=== PATIENT | female | born 1985 | race Caucasian/White ===

== ENCOUNTER → 2016-05-16 | Outpatient (CLI) | payer MEDICAID ==
--- NOTE | 2016-05-16 10:33 | US ---
Ultrasound of the Abdomen Limited History: R 74.8 abnormal liver enzymes. Comparison: MRI abdomen May 2015 Findings: Gallbladder: No shadowing calculi, wall thickening, or pericholecystic fluid. Common bile duct is 3 m m in diameter which is normal. Liver: Diffusely increased in echogenicity without definite focal lesions and measures 17 cm in lengt h. Renal: Right kidney measures 11 x 5 x 5 cm without hydronephrosis. Pancreas: Homogeneous without peripancreatic fluid. Aorta: Visualized upper abdominal aorta demonstrates no aneurysm. Impression: 1. No cholelithiasis or biliary ductal dilation. 2. Mild Hepatic steatosis and mild hepatomegaly without focal hepatic lesions or ascites.
== END ==
LOC: FIMAGING 09:27
PROVIDERS: ATTEND Internal Medicine
DX: R74.8 Abnormal levels of other serum enzymes (principal); R16.0 Hepatomegaly, not elsewhere classified

== ENCOUNTER → 2016-05-31 | Outpatient (CLI) | payer MEDICAID ==
[~2016-05-31] MED LIST: BUPIVACAINE 0.25% 30 ML SDV ONE; LIDOCAINE 1% 30 ML SDV ONE; MIDAZOLAM 2 MG/2 ML VIAL ONE; NA BICARBONATE 50 MEQ/50 ML VIAL ONE; NS 1,000 ML IV SCH; fentaNYL 100 MCG/2 ML INJ ONE
[2016-05-31 09:29] LABS: HEMATOCRIT 42.1 % (38.0-47.0)
[2016-05-31 09:38] LABS: APTT 27.7 SEC (23.0-38.0); INR 0.93 (0.83-1.16); PROTIME(PATIENT) 12.4 SEC (12.0-15.0)
--- NOTE | 2016-05-31 14:52 | US ---
Ultrasound-Guided Liver Biopsy Indication: Abnormal LFT's Crosscutting Measure #226: Current tobacco user: No Witnessed Consent: Witnessed informed consent was obtained after the risks, benefits, and alternative s of ultrasound-guided liver biopsy were explained to the patient and all questions were answered. Intravenous Conscious Sedation: Versed 3.5 mg and fentanyl 175 mcg were administered intravenously fo r conscious sedation under monitoring by the nurse and me. Start time: 10:24 a.m. End Time: 10:51 a. m. Procedure: A preprocedural ultrasound was performed and the skin entrance site was marked. The skin was prepped with Betadine and alcohol solution. The skin and deep soft tissues were numbed with 1% li docaine with bicarbonate. Utilizing real-time ultrasound guidance, a 19-gauge coaxial needle was adva nced into the right lobe of the liver. A 20-gauge biopsy device was advanced coaxially into the right lobe of liver and 3 biopsy specimens were obtained. The needle was removed. Manual hemostasis was ac hieved. Postprocedure imaging demonstrated no hematoma. Patient tolerated the procedure well without immediate complications. Patient was sent to Recovery for monitoring. Postprocedure discharge instruc tions were given. Specimens were sent to Pathology for analysis. Impression: Successful ultrasound-guided liver biopsy. Specimen: Submitted to the lab.
== END ==
LOC: FIMAGING 08:56
PROVIDERS: ATTEND Internal Medicine
PROC: 0FB03ZX Excision of Liver, Percutaneous Approach, Diagnostic (ICD-10-PCS; principal; 2016-05-31 10:50)
DX: R94.5 Abnormal results of liver function studies (principal); K73.9 Chronic hepatitis, unspecified
CPT/HCPCS: J2250; J3010

== ENCOUNTER 2016-12-13 11:38 | Emergency (ER) | payer MEDICAID ==
[2016-12-13 11:50] VITALS: RESP 18; TEMP 98.8
[2016-12-13] MEDS ORDERED: NS 1,000 ML IV ONE (13:56)
--- NOTE | 2016-12-13 13:59 | EDPHY ---
H & P Stated Complaint: decreased sxs in pregnanct. pt cramping no bleeding Time Seen by Provider: 12/13/16 13:50 HPI/ROS: CHIEF COMPLAINT: Concern for miscarriage HISTORY OF PRESENT ILLNESS: The patient is a 31-year-old female with 1 miscarriage at 5 weeks who comes to the emergency department with cramping and a concern for miscarriage. The patient had elevated liver enzymes after her 1st and now they elevate every time she gets . She has itching when they are elevated. She could tell when she lost the 2nd because she stopped itching. She has had some cramping over the last few days and is no longer itching during this and is afraid that she has lost the baby. She has not had any bleeding or discharge. No urinary symptoms. Last menstrual period was 11/05/2016. She is 5 weeks 3 days by dates. REVIEW OF SYSTEMS: Constitutional: denies: chills, fever, recent illness, recent injury EENTM: denies: blurred vision, double vision, nose congestion Respiratory: denies: cough, shortness of breath Cardiac: denies: chest pain, irregular heart rate, lightheadedness, palpitations Gastrointestinal/Abdominal: denies: abdominal pain, diarrhea, nausea, vomiting, blood streaked stools Genitourinary: See HPI, denies: dysuria, frequency, hematuria, pain Musculoskeletal: denies: joint pain, muscle pain Skin: denies: lesions, rash, jaundice, bruising Neurological: denies: headache, numbness, paresthesia, tingling, dizziness, weakness Hematologic/Lymphatic: denies: blood clots, easy bleeding, easy bruising Immunologic/allergic: denies: HIV/AIDS, transplant EXAM: GENERAL: Well-appearing, obese and in no acute distress. HEAD: Atraumatic, normocephalic. EYES: Pupils equal round and reactive to light, extraocular movements intact, sclera anicteric, conjunctiva are normal. ENT: TMs normal, nares patent, oropharynx clear without exudates. Moist mucous membranes. NECK: Normal range of motion, supple without lymphadenopathy or JVD. LUNGS: Breath sounds clear to auscultation bilaterally and equal. No wheezes rales or rhonchi. HEART: Regular rate and rhythm without murmurs, rubs or gallops. ABDOMEN: Soft, nontender, normoactive bowel sounds. No guarding, no rebound. No masses appreciated. BACK: No CVA tenderness, no spinal tenderness, step-offs or deformities EXTREMITIES: Normal range of motion, no pitting or edema. No clubbing or cyanosis. NEUROLOGICAL: Cranial nerves II through XII grossly intact. Normal speech, normal gait. 5/5 strength, normal movement in all extremities, normal sensation PSYCH: Normal mood, normal affect. SKIN: Warm, dry, normal turgor, no visible rashes or lesions. Source: Patient Exam Limitations: No limitations - Personal History LMP (Females 10-55): Current Tetanus/Diphtheria Vaccine: Yes - Medical/Surgical History Hx Asthma: No Hx Chronic Respiratory Disease: No Hx Diabetes: No Hx Cardiac Disease: No Hx Renal Disease: No Hx Cirrhosis: No Hx Alcoholism: No Hx HIV/AIDS: No Hx Splenectomy or Spleen Trauma: No Other PMH: high liver enzymes DENIES - Family History Significant Family History: No pertinent family hx - Social History Smoking Status: Never smoked Alcohol Use: Sober Drug Use: None Constitutional: Initial Vital Signs Temperature (C) 37.1 C 12/13/16 11:48 Heart Rate 93 12/13/16 11:48 Respiratory Rate 18 12/13/16 11:48 Blood Pressure 137/105 H 12/13/16 11:48 O2 Sat (%) 96 12/13/16 11:48 O2 Delivery Mode Room Air Allergies/Adverse Reactions: cefaclor [From Ceclor] Allergy (Intermediate, Verified 12/13/16 11:51) Hives doxycycline Allergy (Intermediate, Verified 12/13/16 11:51) Hives amoxicillin Allergy (Verified 12/13/16 11:51) amoxicillin trihydrate [From Augmentin] Allergy (Verified 12/13/16 11:51) potassium clavulanate [From Augmentin] Allergy (Verified 12/13/16 11:51) ALL CYCLINS Allergy (Uncoded 12/13/16 11:51) Home Medications: Medication Instructions Recorded NK [No Known Home Meds] 05/31/16 Medical Decision Making - Diagnostics Imaging Results: Imaging Impressions Obstetrics Ultrasound 12/13/16 13:56 Impression: 1. Single living intrauterine gestation with EGA weeks and days. Estimated date of delivery is . 2. Recommend follow up anatomy scan at 20 weeks. ED Course/Re-evaluation: The patient is doing well. We discussed her ultrasound and lab results. I recommended repeat quant and ultrasound in 2 days. The patient understands and agrees with this plan. She will follow up with OBGYN. She is considering having an because the pregnancies are very difficult on her health. She and her have been practicing the timing method and this conception happened during a period so they are wondering if it is even a true conception. She is refusing pelvic exam Differential Diagnosis: Partial list of the Differential diagnosis considered include but were not limited to; the the miscarriage, ectopic , IUP and although unlikely based on the history and physical exam, I also considered ovarian cyst, urinary tract infection, appendicitis. I discussed these differential diagnoses and the plan with the patient as well as the usual and expected course. The patient understands that the diagnosis is provisional and that in medicine we are not always correct and that further workup is often warranted. Usual and customary warnings were given. All of the patient's questions were answered. The patient was instructed to return to the emergency department should the symptoms at all worsen or return, otherwise to followup with the physician as we discussed. - Data Points Laboratory Results: Laboratory Results 12/13/16 14:05 12/13/16 14:05 12/13/16 12/13/16 12/13/16 15:15 14:05 14:05 WBC RBC Hgb Hct MCV MCH MCHC RDW Plt Count MPV Neut % (Auto) Lymph % (Auto) [place] % (Auto) Eos % (Auto) Baso % (Auto) Nucleat RBC Rel Count Absolute Neuts (auto) Absolute Lymphs (auto) Absolute Monos (auto) Absolute Eos (auto) Absolute Basos (auto) Absolute Nucleated RBC Immature Gran % Immature Gran # Sodium 138 mEq/L mEq/L (134-144) Potassium 4.0 mEq/L mEq/L (3.5-5.2) Chloride 104 mEq/L mEq/L (97-110) Carbon Dioxide 22 mEq/l mEq/l (22-31) Anion Gap 12 mEq/L mEq/L (8-16) BUN 12 mg/dL mg/dL (7-23) Creatinine 0.7 mg/dL mg/dL (0.6-1.0) Estimated GFR > 60 Glucose 91 mg/dL mg/dL (70-100) Calcium 9.8 mg/dL mg/dL (8.5-10.4) Total Bilirubin 0.6 mg/dL mg/dL (0.1-1.4) Conjugated Bilirubin 0.4 mg/dL mg/dL (0.0-0.5) Unconjugated Bilirubin 0.2 mg/dL mg/dL (0.0-1.1) AST 64 IU/L H IU/L (14-46) ALT 120 IU/L H IU/L (9-52) Alkaline Phosphatase 195 IU/L H IU/L (38-126) Total Protein 7.6 g/dL g/dL (6.3-8.2) Albumin 4.1 g/dL g/dL (3.5-5.0) Lipase 94 IU/L IU/L (23-300) Beta HCG, Quant 711.50 mIU/mL H mIU/mL (0.00-4.83) Urine Color Urine Appearance Urine pH Ur Specific [place] Urine Protein Urine Ketones Urine Blood Urine Nitrate Urine Bilirubin Urine Urobilinogen Ur Leukocyte Esterase Urine RBC Urine WBC Ur Epithelial Cells Urine Bacteria Urine Mucus Urine Glucose Patient ABO/Rh O NEGATIVE 12/13/16 12/13/16 14:05 13:50 WBC 10.42 10^3/uL H 10^3/uL (3.80-9.50) RBC 5.00 10^6/uL 10^6/uL (4.18-5.33) Hgb 13.0 g/dL g/dL (12.6-16.3) Hct 41.4 % % (38.0-47.0) MCV 82.8 fL fL (81.5-99.8) MCH 26.0 pg L pg (27.9-34.1) MCHC 31.4 g/dL L g/dL (32.4-36.7) RDW 15.1 % % (11.5-15.2) Plt Count 348 10^3/uL 10^3/uL (150-400) MPV 10.5 fL fL (8.7-11.7) Neut % (Auto) 67.1 % % (39.3-74.2) Lymph % (Auto) 23.3 % % (15.0-45.0) [place] % (Auto) 7.0 % % (4.5-13.0) Eos % (Auto) 1.2 % % (0.6-7.6) Baso % (Auto) 1.1 % % (0.3-1.7) Nucleat RBC Rel Count 0.0 % % (0.0-0.2) Absolute Neuts (auto) 6.99 10^3/uL H 10^3/uL (1.70-6.50) Absolute Lymphs (auto) 2.43 10^3/uL 10^3/uL (1.00-3.00) Absolute Monos (auto) 0.73 10^3/uL 10^3/uL (0.30-0.80) Absolute Eos (auto) 0.13 10^3/uL 10^3/uL (0.03-0.40) Absolute Basos (auto) 0.11 10^3/uL H 10^3/uL (0.02-0.10) Absolute Nucleated RBC 0.00 10^3/uL 10^3/uL (0-0.01) Immature Gran % 0.3 % % (0.0-1.1) Immature Gran # 0.03 10^3/uL 10^3/uL (0.00-0.10) Sodium Potassium Chloride Carbon Dioxide Anion Gap BUN Creatinine Estimated GFR Glucose Calcium Total Bilirubin Conjugated Bilirubin Unconjugated Bilirubin AST ALT Alkaline Phosphatase Total Protein Albumin Lipase Beta HCG, Quant Urine Color PALE YELLOW Urine Appearance CLEAR Urine pH 5.0 (5.0-7.5) Ur Specific [place] 1.008 (1.002-1.030) Urine Protein NEGATIVE (NEGATIVE) Urine Ketones NEGATIVE (NEGATIVE) Urine Blood 1+ H (NEGATIVE) Urine Nitrate NEGATIVE (NEGATIVE) Urine Bilirubin NEGATIVE (NEGATIVE) Urine Urobilinogen NEGATIVE EU EU (0.2-1.0) Ur Leukocyte Esterase NEGATIVE (NEGATIVE) Urine RBC 1-3 /hpf /hpf (0-3) Urine WBC 1-3 /hpf /hpf (0-3) Ur Epithelial Cells TRACE /lpf /lpf (NONE-1+) Urine Bacteria TRACE /hpf H /hpf (NONE SEEN) Urine Mucus TRACE /lpf /lpf (NONE-1+) Urine Glucose NEGATIVE (NEGATIVE) Patient ABO/Rh Medications Given: Discontinued Medications Sodium Chloride (Ns) 1,000 mls @ 0 mls/hr IV ONCE ONE; Wide Open PRN Reason: Protocol Stop: 12/13/16 13:57 Last Admin: 12/13/16 15:10 Dose: 1,000 mls Departure - Departure Disposition: Home, Routine, Self-Care Clinical Impression: Qualifiers: Weeks of gestation: less than 8 weeks Qualified Code(s): Z3A.01 - Less than 8 weeks gestation of Condition: Fair Instructions: (ED) Referrals: NONE *PRIMARY CARE P,. [Primary Care Provider] - As per Instructions Marily Eaton MD [Medical Doctor] - 2-3 days, call for appt.
[2016-12-13 14:09] LABS: % IMMATURE GRANULYOCYTES 0.3 % (0.0-1.1); ABSOLUTE IMMATURE GRANULOCYTES 0.03 10^3/uL (0.00-0.10); ADD DIFF? NO; ADD MORPH? NO; ADD SCAN? NO; ATYPICAL LYMPHOCYTE FLAG 10 (0-99); FRAGMENT RBC FLAG 0 (0-99); HEMATOCRIT 41.4 % (38.0-47.0); LEFT SHIFT FLG 0 (0-99); LIPEMIA HEMOLYSIS FLAG 80 (0-99); MEAN CELL HEMOGLOBIN CONCENTR. 31.4 g/dL (32.4-36.7); MEAN CELL VOLUME 82.8 fL (81.5-99.8); MEAN PLATELET VOLUME 10.5 fL (8.7-11.7); PLATELET CLUMPS FLAG 0 (0-99); PLATELET COUNT 348 10^3/uL (150-400); RED CELL DISTRIBUTION WIDTH 15.1 % (11.5-15.2)
[2016-12-13 14:14] LABS: COLOR PALE YELLOW; LEUKOCYTE ESTERASE,URINE NEGATIVE (NEGATIVE); NITRITE,URINE NEGATIVE (NEGATIVE)
[2016-12-13 14:16] LABS: BACTERIA TRACE /hpf (NONE SEEN); MUCUS TRACE /lpf (NONE-1+)
[2016-12-13 14:35] LABS: ANION GAP 12 mEq/L (8-16); CALCIUM 9.8 mg/dL (8.5-10.4); CARBON DIOXIDE 22 mEq/l (22-31); CHLORIDE 104 mEq/L (97-110); CREATININE 0.7 mg/dL (0.6-1.0); GLOMERULAR FILTRATION RATE > 60; GLUCOSE 91 mg/dL (70-100); SODIUM 138 mEq/L (134-144)
[2016-12-13 15:54] LABS: ALBUMIN 4.1 g/dL (3.5-5.0); BILIRUBIN,TOTAL 0.6 mg/dL (0.1-1.4); BILIRUBIN-CONJUGATED 0.4 mg/dL (0.0-0.5); BILIRUBIN-UNCONJUGATED 0.2 mg/dL (0.0-1.1); TOTAL PROTEIN 7.6 g/dL (6.3-8.2)
[2016-12-13 16:27] VITALS: BP 113/75; PULSE 90; O2SAT 99
== END 2016-12-13 16:27 | disposition home or self-care (01) ==
DX: O99.89 Other specified diseases and conditions complicating pregnancy, childbirth and the puerperium (principal); R25.2 Cramp and spasm; E86.9 Volume depletion, unspecified; Z3A.01 Less than 8 weeks gestation of pregnancy